=== PATIENT | male | born 1980 | race Caucasian/White ===

== ENCOUNTER 2023-04-29 15:10 | Emergency (ER) | payer BC ==
[~2023-04-29] VITALS: Ht 172.7 cm; Wt 97.0 kg
[~2023-04-29 15:10] MED LIST: ASPI-1406 PO
[2023-04-29 15:32] VITALS: BP 142/109; PULSE 82; RESP 18; TEMP 98.4; O2SAT 97
[2023-04-29] MEDS ORDERED: CEPH500C2 MT (19:58)
[2023-04-29] MEDS ORDERED: IBUP-2029 MT (19:58)
== END 2023-04-29 21:08 | disposition home or self-care (01) ==
LOC: ER 15:10
DX: L02.01 Cutaneous abscess of face (principal); E11.9 Type 2 diabetes mellitus without complications; Z86.73 Personal history of transient ischemic attack (TIA), and cerebral infarction without residual deficits
CPT/HCPCS: 99283